=== PATIENT | male | born 1950 | race African-American/Black ===

== ENCOUNTER → 2016-05-19 | Outpatient (CLI) | payer MEDICARE, OTHER ==
[~2016-05-19] MED LIST: AMBI10TA PO; AMLO10TA2 PO; ASPI1TAB PO; CENTTAB PO; CRES20TA PO; CYCL5TA PO; LOSA100T PO; NAPR550T3 PO; VIAG100T PO; VITA500C10 PO
--- NOTE | 2016-05-19 14:22 | REP ---
CHEST, TWO VIEWS: Two views of the chest are performed and compared to a prior study of 05/20/2010. On the PA view, there appear to be ill-defined lingular opacity adjacent to the cardiac apex. There is mild elevation of the right hemidiaphragm. No other parenchymal opacities are appreciated. The heart is upper limits of normal in size. There is mild calcification of the thoracic aorta. The mediastinal silhouette is unremarkable and unchanged. There are degenerative changes of spine. IMPRESSION: Possible infiltrate or atelectasis in the lingular segment of the left upper lobe adjacent to the cardiac apex. CT of the chest may be performed to further evaluate. Signed by Jamel Ji MD 05/19/2016 04:59 P
== END ==
LOC: M WUC 12:14
DX: R05 Cough (principal)

== ENCOUNTER → 2016-09-29 | Outpatient (REF) | payer MEDICARE, OTHER ==
[~2016-09-29] MED LIST changes: -LOSA100T PO; +LOSA100T8 PO; +NAPR550T22 PO; -NAPR550T3 PO
== END ==
LOC: M LAB REF 17:33
PROVIDERS: ATTEND Family Medicine
DX: Z01.89 Encounter for other specified special examinations (principal)

== ENCOUNTER → 2019-04-25 | Outpatient (REF) | payer MEDICARE, OTHER ==
[~2019-04-25] MED LIST changes: -AMLO10TA2 PO; +AMLO10TA5 PO; -ASPI1TAB PO; +ASPI81TA26 PO; -CRES20TA PO; +CRES20TA2 PO; -CYCL5TA PO; +CYCL5TAB5 PO; +NAPR-832 PO; -NAPR550T22 PO
[2019-04-25 14:14] LABS: APPEARANCE, URINE CLEAR (CLEAR); BACTERIA, URINE AUTO NEGATIVE (NEGATIVE); BILIRUBIN, URINE AUTO NEGATIVE (NEGATIVE); BLOOD, URINE BLOOD NEGATIVE (NEGATIVE); COLOR, URINE YELLOW (YELLOW); GLUCOSE, URINE (UA) AUTO NEGATIVE (NEGATIVE); KETONE, URINE AUTO NEGATIVE (NEGATIVE); LEUKOCYTE ESTERASE, URINE AUTO NEGATIVE (NEGATIVE); NITRITE, URINE AUTO NEGATIVE (NEGATIVE); PROTEIN, URINE AUTO NEGATIVE (NEGATIVE); RBC, URINE AUTO 0 /HPF (0-3); SPECIFIC GRAVITY URINE AUTO 1.013 (1.002-1.035); SQUAMOUS EPITHELIAL CELL UR AU 0 /HPF (0-6); UROBILINOGEN, URINE AUTO 0.2 mg/dL (0.0-2.0); WBC, URINE AUTO 1 /HPF (0-3)
== END ==
LOC: M SMT 13:42
PROVIDERS: ATTEND Urology
DX: R39.11 Hesitancy of micturition (principal); R97.20 Elevated prostate specific antigen [PSA]
CPT/HCPCS: 36415; 81001; 84153; 84154; 86316; G0463

== ENCOUNTER → 2019-07-04 | Outpatient (REF) | payer MEDICARE, OTHER ==
[2019-07-05 14:15] LABS: PSA % FREE 10.8 % (.); PSA FREE 0.66 ng/mL; PSA TOTAL 6.1 ng/mL (0.0-4.0)
== END ==
LOC: M LABDRWAD 12:28
PROVIDERS: ATTEND Urology
DX: R97.20 Elevated prostate specific antigen [PSA] (principal)

== ENCOUNTER → 2019-08-02 | Outpatient (CLI) | payer MEDICARE, OTHER ==
--- NOTE | 2019-08-02 13:54 | REPPI ---
TRANSRECTAL PROSTATE ULTRASOUND WITH ULTRASOUND GUIDANCE FOR PROSTATE BIOPSY: Transrectal prostate ultrasound performed. Prostate measures 4.2 x 3.1 x 4.3 cm for a total volume of 29.4 mL. Echotexture is heterogeneous with scattered small cysts and calcifications. Hypoechoic nodule is seen anteriorly on the left measuring 8 mm in diameter. Ultrasound guidance was provided for Dr. Higginbotham who performed ultrasound guided biopsy of the prostate. Electronically Signed by Jamel Ji MD 08/02/2019 03:36 P
== END ==
LOC: M SMT PRO 08:07
PROVIDERS: ATTEND Urology
DX: C61 Malignant neoplasm of prostate (principal)
CPT/HCPCS: 52000; 55700; 76872; 76942; G0416

== ENCOUNTER → 2019-08-11 | Outpatient (REF) | payer OTHER ==
[2019-08-11 13:12] LABS: BLOOD UREA NITROGEN 15 MG/DL (7-18); CALCIUM LEVEL 9.1 MG/DL (8.8-10.2); CARBON DIOXIDE LEVEL 30 MEQ/L (21-32); CHLORIDE LEVEL 107 MEQ/L (98-107); CREATININE FOR GFR 1.17 MG/DL (0.70-1.30); GLOMERULAR FILTRATION RATE > 60.0 (>49); GLUCOSE, FASTING 93 MG/DL (70-100); POTASSIUM SERUM 3.7 MEQ/L (3.5-5.1); SODIUM LEVEL 142 MEQ/L (136-145)
== END ==
LOC: M LABSMT 08:26 → M SFHCADAM 08:56
PROVIDERS: ATTEND Urology
DX: C61 Malignant neoplasm of prostate (principal)

== ENCOUNTER → 2019-08-24 | Outpatient (CLI) | payer OTHER ==
[~2019-08-24] MED LIST changes: +ISOVUE-370 76% 100ML VIAL As Ordered ONE
--- NOTE | 2019-08-24 17:53 | REP ---
WHOLE BODY BONE SCAN: Following the intravenous administration of 22 mCi technetium 99m MDP, patient's whole body is imaged in the anterior and posterior projections with additional oblique and lateral views obtained. There is increased uptake in the region of metallic internal fixation in the lower lumbar spine and sacroiliac region. Arthritic changes are seen at the sacroiliac joints. This correlates with the CT scan today. Very mild scattered uptake is seen in the upper thoracic spine and left posterior cervical facets, most consistent with arthritic uptake. Focal increased uptake at the right sternoclavicular joint is compatible with arthritic uptake. There appears to be mild arthritic uptake at both shoulders. The right iliac crest demonstrates calcifications at tendinous insertions anteriorly and superiorly which may be posttraumatic or postsurgical. There is increased uptake in this region on the bone scan. No definite osseous metastases are seen. Renal and bladder activity are seen. IMPRESSION: There are areas of arthritic uptake and postsurgical uptake, as discussed above. Increased uptake in the right iliac crest is likely related to posttraumatic or postsurgical changes as seen on today's CT scan. No compelling scintigraphic evidence of osseous metastases. Electronically Signed by Jamel Ji MD 08/25/2019 07:33 P
== END ==
LOC: M RAD 09:10
PROVIDERS: ATTEND Urology
DX: C61 Malignant neoplasm of prostate (principal)
CPT/HCPCS: 74177; 78306; A9503; Q9967

== ENCOUNTER → 2019-09-28 | Outpatient (CLI) | payer OTHER ==
[~2019-09-28] MED LIST changes: +ALEV220T22 PO; +ANOR1AER PO; +ATOR40TA75 PO; +CENT1TAB PO; +HYDR25TAB PO; -ISOVUE-370 76% 100ML VIAL As Ordered ONE; +LOSA100T50 PO; +PROAAER10 INH; +TIMO0.5S29 OU
--- NOTE | 2019-09-28 15:54 | REP ---
REASON: History of carcinoma of the prostate. PRIORS: None. FINDINGS: The superior mediastinal structures are midline. The cardiac silhouette is unremarkable in size, shape, and position. The diaphragmatic surfaces of the lungs are regular, and the costophrenic angles are clear. The pulmonary thompson are clear. The imaged osseous structures are intact. IMPRESSION: There is no acute cardiopulmonary disease. Electronically Signed by Ashu Ochoa DO 09/29/2019 11:03 A
== END ==
LOC: M ADAMS 10:54
PROVIDERS: ATTEND Urology
DX: Z01.818 Encounter for other preprocedural examination (principal); N20.0 Calculus of kidney; C61 Malignant neoplasm of prostate; N39.0 Urinary tract infection, site not specified

== ENCOUNTER → 2019-09-28 | Outpatient (REF) | payer OTHER ==
[~2019-09-28] MED LIST changes: -AMLO10TA5 PO; +AMLO1TAB25 PO
[2019-09-28 13:34] LABS: HEMATOCRIT 43.7 % (42.0-52.0); HEMOGLOBIN 14.5 g/dl (13.5-17.5); MEAN CORPUSCULAR HEMOGLOBIN 30.1 pg (27.0-33.0); MEAN CORPUSCULAR HGB CONC 33.2 g/dl (32.0-36.5); MEAN CORPUSCULAR VOLUME 90.7 fl (80.0-96.0); PLATELET COUNT, AUTOMATED 254 10^3/uL (150-450); RED BLOOD COUNT 4.82 10^6/uL (4.30-6.10)
[2019-09-28 13:44] LABS: INR 1.08; PROTHROMBIN TIME 13.7 SECONDS (11.8-14.0)
[2019-09-28 13:45] LABS: PARTIAL THROMBOPLASTIN TIME 31.1 SECONDS (25.0-38.4)
[2019-09-28 13:59] LABS: BLOOD UREA NITROGEN 14 MG/DL (7-18); CALCIUM LEVEL 9.3 MG/DL (8.8-10.2); CARBON DIOXIDE LEVEL 28 MEQ/L (21-32); CHLORIDE LEVEL 108 MEQ/L (98-107); CREATININE FOR GFR 1.22 MG/DL (0.70-1.30); GLOMERULAR FILTRATION RATE > 60.0 (>49); GLUCOSE, FASTING 81 MG/DL (70-100); SODIUM LEVEL 142 MEQ/L (136-145)
== END ==
LOC: M LABSMT 10:57 → M SFHCADAM 11:02
PROVIDERS: ATTEND Urology
DX: Z01.818 Encounter for other preprocedural examination (principal); N20.0 Calculus of kidney; C61 Malignant neoplasm of prostate; N39.0 Urinary tract infection, site not specified

== ENCOUNTER → 2019-10-01 | Outpatient (CLI) | payer OTHER | LOC: M LABSMTC 08:07 | PROVIDERS: ATTEND Anesthesiology | DX: Z03.818 Encounter for observation for suspected exposure to other biological agents ruled out (principal); Z11.59 Encounter for screening for other viral diseases | CPT/HCPCS: C9803; U0003 ==

== ENCOUNTER 2019-10-06 06:27 | Day surgery (SDC) | payer OTHER ==
[~2019-10-06] VITALS: Ht 167.6 cm; Wt 90.2 kg
[~2019-10-06 06:27] MED LIST changes: +LIDOCAINE 1% MDV 20ML VIAL SQ PRN
[2019-10-06] MEDS ORDERED: ceFAZolin SOD 2 GM in IV 1 EA IV ONE (07:00)
[2019-10-06] MEDS ORDERED: LR 1,000 ML IV ONE (07:00)
[2019-10-06] MEDS ORDERED: LIDOCAINE 2% 100MG/5ML SDV (FOR ANES.) As Ordered ONE (07:11)
[2019-10-06] MEDS ORDERED: propofoL 200 MG/20 ML VIAL As Ordered ONE (07:11)
[2019-10-06] MEDS ORDERED: ONDANSETRON 4MG/2ML VIAL As Ordered ONE (07:12)
[2019-10-06] MEDS ORDERED: fentaNYL 100 MCG/2 ML INJECTION (J3010) As Ordered ONE (07:12)
[2019-10-06] MEDS ORDERED: dexameTHASONE 4 MG/ML 1ML VIAL (J1100 PER 1MG) As Ordered ONE (07:12)
[2019-10-06] MEDS ORDERED: MIDAZOLAM INJ 2MG/2ML VIAL (J2250 PER 1MG) As Ordered ONE ×2 (07:32→08:55)
[2019-10-06] MEDS ORDERED: CONRAY-60 60% 50ML VIAL (Q9961) As Ordered ONE (07:38)
[2019-10-06] MEDS ORDERED: ePHEDrine SULFATE 25 MG/5 ML(5MG/ML) SYRINGE As Ordered ONE ×2 (07:55→09:20)
[2019-10-06] MEDS ORDERED: ACETAMINOPHEN 1000MG 100ML IV BTL (OFIRMEV) (J0131 PER 10MG) As Ordered ONE (08:18)
[2019-10-06] MEDS ORDERED: ONDANSETRON 4MG/2ML VIAL IV PRN (08:45)
[2019-10-06] MEDS ORDERED: METOCLOPRAMIDE INJ 10MG/2ML VIAL (J2765 PER 1) IV PRN (08:45)
[2019-10-06] MEDS ORDERED: LR 1,000 ML IV SCH (08:45)
[2019-10-06] MEDS ORDERED: fentaNYL 100 MCG/2 ML INJECTION (J3010) IV PRN (08:45)
[2019-10-06] MEDS ORDERED: PERCOCET 5MG/325MG TAB PO PRN ×2 (08:45)
[2019-10-06 09:15] VITALS: BP 132/77
--- NOTE | 2019-10-06 09:45 | REP ---
C-ARM VIEWS DURING LEFT URETERAL STENT PLACEMENT: Four C-arm views abdomen and pelvis performed. Left pelvocaliceal system is opacified with contrast and appears mildly dilated. There is placement of a left ureteral stent with the proximal end coiled in the left renal pelvis and the distal end coiled in the urinary bladder. Metallic internal fixation is noted in the lower lumbar spine and at the left sacroiliac joint. 4 seconds of fluoroscopy time utilized. Electronically Signed by Jamel Ji MD 10/09/2019 11:33 P
--- NOTE | 2019-10-11 16:30 | RO ---
DATE OF PROCEDURE: 10/06/2019 PREPROCEDURE DIAGNOSIS: Left ureteral stone. POSTPROCEDURE DIAGNOSIS: Left ureteral stone. PROCEDURE: Cystoscopy, left ureteroscopy with laser lithotripsy and basket extraction of stones, left retrograde pyelogram with intraoperative interpretation of images, left ureteral stent placement. SURGEON: Claudio Higginbotham MD COMBER TENDER: None. ANESTHESIA: General. OPERATIVE INDICATIONS: This is a 69-year-old male who on recent CAT scan found to have an approximately 8 mm distal left ureteral stone. He was brought to the operating room today for treatment. DESCRIPTION OF PROCEDURE: The patient brought to the operating room and general anesthesia induced. Prophylactic antibiotics were infused. He was placed in dorsal lithotomy position, prepped and draped in the usual sterile fashion. A rigid cystoscope was inserted into the urethral meatus and advanced to the bladder. A guidewire was advanced up the left collecting system. I then went up the left collecting system with a short semi rigid ureteroscope and within the distal ureter an 8 mm was seen. This stone was fragmented into smaller pieces using a 272 micron laser fiber. All the fragments were removed using a basket. Once done, I examined the more proximal ureter and no additional stones were seen. A retrograde pyelogram was performed and notable for moderate hydroureteronephrosis with no extravasation. I then utilized the previously placed wire to advance a 7 Burmese x 22-32 cm JJ ureteral stent into the left collecting system. The wire was removed and there were adequate curls of the stent in the left renal pelvis and in the bladder. The bladder was emptied of all fluid and this marked the conclusion of the procedure. The patient was then taken out of dorsal lithotomy position, awakened from anesthesia and transported to the recovery room in stable condition. ESTIMATED BLOOD LOSS: 5 mL. COMPLICATIONS: None. SPECIMENS: Kidney stone fragments. PLAN: This patient also has prostate cancer and is scheduled to have a robotic radical prostatectomy in approximately 1-2 weeks. Will likely take his stent out at the time of that procedure. NAVIN
[2019-11-07 14:43] LABS: CA Oxalate Dihy 26 % (.); Ca Ox Monohydrate 74 % (.); Size 4x3 mm (.)
== END 2019-10-06 10:03 | disposition home or self-care (01) ==
LOC: M SDC 06:27
PROVIDERS: ATTEND Urology
DX: N20.1 Calculus of ureter (principal); C61 Malignant neoplasm of prostate; I10 Essential (primary) hypertension; K21.9 Gastro-esophageal reflux disease without esophagitis; J44.9 Chronic obstructive pulmonary disease, unspecified; Z79.51 Long term (current) use of inhaled steroids; Z79.899 Other long term (current) drug therapy; Z88.8 Allergy status to other drugs, medicaments and biological substances; F41.9 Anxiety disorder, unspecified; F32.9 Major depressive disorder, single episode, unspecified
CPT/HCPCS: 52356; 74420; 82365; 88300; C1769; C1894; C2617; J0131; J0690; J1100; J2250; J2405; J3010; Q9961

== ENCOUNTER → 2019-10-12 | Outpatient (REF) | payer OTHER ==
[~2019-10-12] MED LIST changes: -LIDOCAINE 1% MDV 20ML VIAL SQ PRN
[2019-10-12 13:08] LABS: HEMATOCRIT 44.4 % (42.0-52.0); HEMOGLOBIN 14.7 g/dl (13.5-17.5); MEAN CORPUSCULAR HEMOGLOBIN 30.6 pg (27.0-33.0); MEAN CORPUSCULAR HGB CONC 33.1 g/dl (32.0-36.5); MEAN CORPUSCULAR VOLUME 92.3 fl (80.0-96.0); PLATELET COUNT, AUTOMATED 250 10^3/uL (150-450); RED BLOOD COUNT 4.81 10^6/uL (4.30-6.10); WHITE BLOOD COUNT 5.2 10^3/uL (4.0-10.0)
[2019-10-12 13:19] LABS: PARTIAL THROMBOPLASTIN TIME 30.7 SECONDS (25.0-38.4); PROTHROMBIN TIME 12.9 SECONDS (11.8-14.0)
[2019-10-12 13:42] LABS: CALCIUM LEVEL 9.5 MG/DL (8.8-10.2); CREATININE FOR GFR 1.33 MG/DL (0.70-1.30); GLOMERULAR FILTRATION RATE 56.9 (>49); POTASSIUM SERUM 3.9 MEQ/L (3.5-5.1)
== END ==
LOC: M LABSMT 10:30 → M SFHCADAM 11:09
PROVIDERS: ATTEND Urology
DX: Z01.818 Encounter for other preprocedural examination (principal); N20.0 Calculus of kidney; C61 Malignant neoplasm of prostate; N39.0 Urinary tract infection, site not specified

== ENCOUNTER 2019-10-18 07:30 | Inpatient (IN) | payer OTHER ==
[~2019-10-18] VITALS: Ht 170.2 cm; Wt 88.0 kg
[~2019-10-18 07:30] MED LIST changes: +AMLO10TA5 PO; -AMLO1TAB25 PO
[2019-10-18] MEDS ORDERED: HEPARIN SOD (PORCINE) 5000UNITS/ML VIAL (J1644 PER 1000UNITS) ONE ×2 (11:07→22:41)
[2019-10-18] MEDS ORDERED: HEPARIN SOD (PORCINE) 5000UNITS/ML VIAL (J1644 PER 1000UNITS) As Ordered ONE ×2 (11:07→22:41)
[2019-10-18] MEDS ORDERED: ceFAZolin 2 GM/D5W 50 ML IV BAG (J0690 PER 500MG) As Ordered ONE (11:07)
[2019-10-18] MEDS ORDERED: ceFAZolin 2 GM/D5W 50 ML IV BAG (J0690 PER 500MG) ONE (11:07)
[2019-10-18] MEDS ORDERED: BUPIVACAINE HCL 0.25% 30ML VIAL As Ordered ONE (12:23)
[2019-10-18] MEDS ORDERED: LIDOCAINE 1% SDV 30ML VIAL As Ordered ONE (12:23)
[2019-10-18] MEDS ORDERED: TIMOLOL MALEATE 0.5% OPHTH SOLN 5 ML ONE (13:00)
[2019-10-18] MEDS ORDERED: ROCURONIUM BROMIDE 50 MG/5 ML VIAL As Ordered ONE ×2 (13:31→15:19)
[2019-10-18] MEDS ORDERED: LIDOCAINE 2% 100MG/5ML SDV (FOR ANES.) As Ordered ONE (13:31)
[2019-10-18] MEDS ORDERED: ONDANSETRON 4MG/2ML VIAL As Ordered ONE (13:31)
[2019-10-18] MEDS ORDERED: fentaNYL 100 MCG/2 ML INJECTION (J3010) As Ordered ONE ×3 (13:31→19:00)
[2019-10-18] MEDS ORDERED: dexameTHASONE 4 MG/ML 1ML VIAL (J1100 PER 1MG) As Ordered ONE (13:31)
[2019-10-18] MEDS ORDERED: propofoL 200 MG/20 ML VIAL As Ordered ONE (13:31)
[2019-10-18] MEDS ORDERED: HYDROmorphone HCL 2 MG/ML 1ML VIAL (J1170) As Ordered ONE (13:31)
[2019-10-18] MEDS ORDERED: MIDAZOLAM INJ 2MG/2ML VIAL (J2250 PER 1MG) As Ordered ONE (13:31)
[2019-10-18] MEDS ORDERED: GLYCOPYRROLATE INJ 0.2 MG/ML 2 ML VIAL As Ordered ONE (13:32)
[2019-10-18] MEDS ORDERED: ACETAMINOPHEN 1000MG 100ML IV BTL (OFIRMEV) (J0131 PER 10MG) As Ordered ONE (14:38)
[2019-10-18] MEDS ORDERED: SUGAMMADEX SODIUM 500 MG/5 ML VIAL (BRIDION) As Ordered ONE (14:41)
[2019-10-18] MEDS ORDERED: hydrALAZINE 20MG/ML 1ML VIAL (J0360 PER 20MG) As Ordered ONE (14:49)
[2019-10-18] MEDS ORDERED: ATROPINE SULF 0.4 MG/ML 1ML VIAL (J0461) As Ordered ONE (15:05)
[2019-10-18] MEDS ORDERED: ePHEDrine SULFATE 25 MG/5 ML(5MG/ML) SYRINGE As Ordered ONE (16:01)
[2019-10-18] MEDS ORDERED: ALBUTEROL 6.7GM INHALER **FOR ANES. CART/OMNICELL ONLY As Ordered ONE (17:46)
[2019-10-18] MEDS ORDERED: fentaNYL 100 MCG/2 ML INJECTION (J3010) ONE ×2 (18:18→19:00)
[2019-10-18] MEDS ORDERED: oxyCODONE 5MG TAB ONE ×2 (18:18→18:56)
[2019-10-18] MEDS ORDERED: oxyCODONE 5MG TAB As Ordered ONE ×2 (18:18→18:56)
[2019-10-18] MEDS ORDERED: ALBUTEROL SULFATE 2.5 MG/0.5 ML INH NEB SOLN ONE (18:27)
[2019-10-18] MEDS ORDERED: ALBUTEROL SULFATE 2.5 MG/0.5 ML INH NEB SOLN As Ordered ONE (18:27)
[2019-10-18] MEDS ORDERED: ceFAZolin 1GM VIAL (J0690 PER 500MG) ONE (22:41)
[2019-10-18] MEDS ORDERED: DOCUSATE SODIUM 100 MG CAP ONE (22:41)
[2019-10-18] MEDS ORDERED: ceFAZolin 1GM VIAL (J0690 PER 500MG) As Ordered ONE (22:42)
[2019-10-18] MEDS ORDERED: DOCUSATE SODIUM 100 MG CAP As Ordered ONE (22:42)
[2019-10-18] MEDS ORDERED: PERCOCET 5MG/325MG TAB ONE (22:50)
[2019-10-18] MEDS ORDERED: PERCOCET 5MG/325MG TAB As Ordered ONE ×2 (22:50→23:03)
[2019-10-19] MEDS ORDERED: PERCOCET 5MG/325MG TAB ONE ×2 (06:22→12:35)
[2019-10-19] MEDS ORDERED: ceFAZolin 1GM VIAL (J0690 PER 500MG) ONE (06:22)
[2019-10-19] MEDS ORDERED: ceFAZolin 1GM VIAL (J0690 PER 500MG) As Ordered ONE (06:22)
[2019-10-19] MEDS ORDERED: HEPARIN SOD (PORCINE) 5000UNITS/ML VIAL (J1644 PER 1000UNITS) As Ordered ONE ×3 (06:22→21:11)
[2019-10-19] MEDS ORDERED: HEPARIN SOD (PORCINE) 5000UNITS/ML VIAL (J1644 PER 1000UNITS) ONE ×3 (06:22→21:11)
[2019-10-19] MEDS ORDERED: PERCOCET 5MG/325MG TAB As Ordered ONE ×2 (06:32→12:35)
[2019-10-19] MEDS ORDERED: ATORVASTATIN 20 MG TAB As Ordered ONE (08:32)
[2019-10-19] MEDS ORDERED: DOCUSATE SODIUM 100 MG CAP As Ordered ONE ×2 (08:32→21:11)
[2019-10-19] MEDS ORDERED: ATORVASTATIN 20 MG TAB ONE (08:33)
[2019-10-19] MEDS ORDERED: LOSARTAN 50MG TABLET As Ordered ONE (08:33)
[2019-10-19] MEDS ORDERED: hydroCHLOROthiazide 25 MG TAB As Ordered ONE (08:33)
[2019-10-19] MEDS ORDERED: MORPHINE 2 MG/ML 1ML VIAL (J2270) As Ordered ONE ×2 (08:33→14:16)
[2019-10-19] MEDS ORDERED: hydroCHLOROthiazide 25 MG TAB ONE (08:33)
[2019-10-19] MEDS ORDERED: LOSARTAN 50MG TABLET ONE (08:33)
[2019-10-19] MEDS ORDERED: MORPHINE 2 MG/ML 1ML VIAL (J2270) ONE ×2 (08:33→14:16)
[2019-10-19] MEDS ORDERED: amLODIPine 10 MG TAB ONE (08:33)
[2019-10-19] MEDS ORDERED: amLODIPine 10 MG TAB As Ordered ONE (08:33)
[2019-10-19] MEDS ORDERED: DOCUSATE SODIUM 100 MG CAP ONE ×2 (08:33→21:11)
[2019-10-19] MEDS ORDERED: KETOROLAC 30 MG/ML 1ML VIAL As Ordered ONE ×2 (16:03→21:11)
[2019-10-19] MEDS ORDERED: KETOROLAC 30 MG/ML 1ML VIAL ONE ×2 (16:03→21:11)
[2019-10-20] MEDS ORDERED: KETOROLAC 30 MG/ML 1ML VIAL As Ordered ONE ×2 (03:50→08:30)
[2019-10-20] MEDS ORDERED: KETOROLAC 30 MG/ML 1ML VIAL ONE ×2 (03:50→08:30)
[2019-10-20] MEDS ORDERED: HEPARIN SOD (PORCINE) 5000UNITS/ML VIAL (J1644 PER 1000UNITS) As Ordered ONE (07:14)
[2019-10-20] MEDS ORDERED: amLODIPine 10 MG TAB ONE (08:30)
[2019-10-20] MEDS ORDERED: LOSARTAN 50MG TABLET ONE (08:30)
[2019-10-20] MEDS ORDERED: ATORVASTATIN 20 MG TAB ONE (08:30)
[2019-10-20] MEDS ORDERED: DOCUSATE SODIUM 100 MG CAP As Ordered ONE (08:30)
[2019-10-20] MEDS ORDERED: ATORVASTATIN 20 MG TAB As Ordered ONE (08:30)
[2019-10-20] MEDS ORDERED: DOCUSATE SODIUM 100 MG CAP ONE (08:30)
[2019-10-20] MEDS ORDERED: HEPARIN SOD (PORCINE) 5000UNITS/ML VIAL (J1644 PER 1000UNITS) ONE (08:30)
[2019-10-20] MEDS ORDERED: hydroCHLOROthiazide 25 MG TAB ONE (08:30)
[2019-10-20] MEDS ORDERED: amLODIPine 10 MG TAB As Ordered ONE (08:31)
[2019-10-20] MEDS ORDERED: hydroCHLOROthiazide 25 MG TAB As Ordered ONE (08:31)
[2019-10-20] MEDS ORDERED: LOSARTAN 50MG TABLET As Ordered ONE (08:31)
[2019-11-18 23:54] LABS: HEMATOCRIT 44.3 % (42.0-52.0); HEMOGLOBIN 14.7 g/dl (13.5-17.5); MEAN CORPUSCULAR HEMOGLOBIN 30.4 pg (27.0-33.0); MEAN CORPUSCULAR HGB CONC 33.2 g/dl (32.0-36.5); MEAN CORPUSCULAR VOLUME 91.5 fl (80.0-96.0); PLATELET COUNT, AUTOMATED 246 10^3/uL (150-450); RED BLOOD COUNT 4.84 10^6/uL (4.30-6.10); WHITE BLOOD COUNT 10.6 10^3/uL (4.0-10.0)
== END 2019-10-20 17:00 | disposition home or self-care (01) | DRG 707 ==
LOC: M MSPAV 13:15
PROVIDERS: ADMIT Urology; ATTEND Urology
PROC: 0VT04ZZ Resection of Prostate, Percutaneous Endoscopic Approach (ICD-10-PCS; principal; 2019-10-18)
PROC: 07BC4ZX Excision of Pelvis Lymphatic, Percutaneous Endoscopic Approach, Diagnostic (ICD-10-PCS; 2019-10-18)
PROC: 0TP94DZ Removal of Intraluminal Device from Ureter, Percutaneous Endoscopic Approach (ICD-10-PCS; 2019-10-18)
PROC: 8E0W4CZ Robotic Assisted Procedure of Trunk Region, Percutaneous Endoscopic Approach (ICD-10-PCS; 2019-10-18)
DX: C61 Malignant neoplasm of prostate (principal); I50.32 Chronic diastolic (congestive) heart failure; N20.0 Calculus of kidney; I11.0 Hypertensive heart disease with heart failure; J45.998 Other asthma; E78.5 Hyperlipidemia, unspecified; G47.00 Insomnia, unspecified; K21.9 Gastro-esophageal reflux disease without esophagitis; R73.01 Impaired fasting glucose; F43.22 Adjustment disorder with anxiety; Z79.82 Long term (current) use of aspirin; Z79.899 Other long term (current) drug therapy; Z87.891 Personal history of nicotine dependence

== ENCOUNTER → 2019-11-21 | Outpatient (REF) | payer OTHER ==
[~2019-11-21] MED LIST changes: -AMLO10TA5 PO; +AMLO1TAB25 PO
== END ==
LOC: M LABDRWAD 10:23
PROVIDERS: ATTEND Urology
DX: Z12.5 Encounter for screening for malignant neoplasm of prostate (principal); R97.20 Elevated prostate specific antigen [PSA]

== ENCOUNTER → 2020-02-28 | Outpatient (CLI) | payer MEDICARE, OTHER | LOC: M LABSMTC 10:29 | PROVIDERS: ATTEND Family Medicine | DX: Z11.59 Encounter for screening for other viral diseases (principal) ==

== ENCOUNTER → 2020-03-02 | Outpatient (CLI) | payer MEDICARE, OTHER ==
[2020-03-02 14:37] LABS: BASO % 0.3 % (0.0-1.0); EOS # 0.1 10^3/uL (0.0-0.5); EOS % 0.5 % (0.0-3.0); HEMATOCRIT 36.4 % (42.0-52.0); MEAN CORPUSCULAR HEMOGLOBIN 29.6 pg (27.0-33.0); MEAN CORPUSCULAR VOLUME 89.9 fl (80.0-96.0); MONO # 1.7 10^3/uL (0.0-0.8); MONO % 15.1 % (0.0-5.0); NEUTROPHILS # 8.2 10^3/uL (1.5-8.5); NEUTROPHILS % 73.8 % (36.0-66.0); PLATELET COUNT, AUTOMATED 320 10^3/uL (150-450); RED BLOOD COUNT 4.05 10^6/uL (4.30-6.10); WHITE BLOOD COUNT 11.1 10^3/uL (4.0-10.0)
[2020-03-02 14:53] LABS: ALBUMIN 2.9 GM/DL (3.2-5.2); BILIRUBIN,TOTAL 1.2 MG/DL (0.2-1.0); CALCIUM LEVEL 8.8 MG/DL (8.8-10.2); CREATININE FOR GFR 1.47 MG/DL (0.70-1.30); GLOMERULAR FILTRATION RATE 50.6 (>49); POTASSIUM SERUM 3.5 MEQ/L (3.5-5.1); TOTAL PROTEIN 7.2 GM/DL (6.4-8.2)
== END ==
LOC: M WUC 13:03
PROVIDERS: ATTEND Physician Assistant
DX: R50.9 Fever, unspecified (principal); M51.34 Other intervertebral disc degeneration, thoracic region; J20.9 Acute bronchitis, unspecified; Z20.828 Contact with and (suspected) exposure to other viral communicable diseases

== ENCOUNTER → 2020-03-02 | Outpatient (CLI) | payer MEDICARE, OTHER ==
--- NOTE | 2020-03-02 12:33 | REP ---
INDICATION: ACUTE BRONCHITIS, CONTACT EXPOSURE TO OTHER VIRAL DISEASE. COMPARISON: Comparison chest x-ray September 28, 2019. TECHNIQUE: Two views.. FINDINGS: The lungs are well inflated and free of infiltrate. There is an eventration of the right hemidiaphragm. Pleural angles are sharp. There are degenerative changes in the thoracic spine. The aorta is tortuous. Heart size is normal. Pulmonary vasculature is not increased. IMPRESSION: No active disease.. <Electronically signed by Marlon Mojica > 03/02/20 [id number]
== END ==
LOC: M WUC 12:08
PROVIDERS: ATTEND Physician Assistant
DX: M51.34 Other intervertebral disc degeneration, thoracic region (principal); J20.9 Acute bronchitis, unspecified; Z20.828 Contact with and (suspected) exposure to other viral communicable diseases

== ENCOUNTER → 2020-03-08 | Outpatient (REF) | payer OTHER ==
[2020-03-08 14:27] LABS: APPEARANCE, URINE HAZY (CLEAR); BACTERIA, URINE AUTO NEGATIVE (NEGATIVE); BILIRUBIN, URINE AUTO NEGATIVE (NEGATIVE); BLOOD, URINE BLOOD 1+ (NEGATIVE); COLOR, URINE YELLOW (YELLOW); GLUCOSE, URINE (UA) AUTO NEGATIVE (NEGATIVE); KETONE, URINE AUTO NEGATIVE (NEGATIVE); LEUKOCYTE ESTERASE, URINE AUTO NEGATIVE (NEGATIVE); MUCUS, URINE SMALL (NEGATIVE); NITRITE, URINE AUTO NEGATIVE (NEGATIVE); PROTEIN, URINE AUTO 3+ mg/dL (NEGATIVE); RBC, URINE AUTO 51 /HPF (0-3); SPECIFIC GRAVITY URINE AUTO 1.013 (1.002-1.035); SQUAMOUS EPITHELIAL CELL UR AU 0 /HPF (0-6); WBC, URINE AUTO 2 /HPF (0-3)
== END ==
LOC: M LABSMT 10:34
PROVIDERS: ATTEND Urology
DX: N20.0 Calculus of kidney (principal)

== ENCOUNTER → 2020-03-08 | Outpatient (CLI) | payer MEDICARE, OTHER ==
--- NOTE | 2020-03-08 12:44 | REP ---
INDICATION: KIDNEY STONE. COMPARISON: Supine abdomen min plain film study dated 12/26/[address] with IV contrast dated 08/24/2019. TECHNIQUE: Supine AP views of the abdomen and pelvis, two views. FINDINGS: On the comparison CT number bilateral renal calculi and a calcification inferiorly in the pelvis thought to have been a distal left ureteral calculus. There is no hydronephrosis. On the study today the kidneys are obscured by bowel gas. No definite renal calculi can be identified. On the study today no calcifications are identified in the pelvis. There is surgical fusion of the lumbar spine spanning L3-S1, similar to the comparison CT. IMPRESSION: No renal or pelvic calculi are identified on plain films today. Depending on symptoms consider a follow-up CT without and with IV contrast using the CT urogram protocol. <Electronically signed by Jamel Joyner > 03/08/20 [id number]
== END ==
LOC: M ADAMS 08:34
PROVIDERS: ATTEND Urology
DX: N20.0 Calculus of kidney (principal)

== ENCOUNTER → 2020-03-12 | Outpatient (REF) | payer OTHER | LOC: M SFHCADAM 11:16 | PROVIDERS: ATTEND Urology | DX: C61 Malignant neoplasm of prostate (principal) ==

== ENCOUNTER → 2020-06-12 | Outpatient (REF) | payer OTHER ==
[~2020-06-12] MED LIST changes: +HYDR-3490 PO; -HYDR25TAB PO
== END ==
LOC: M SFHCADAM 15:38
PROVIDERS: ATTEND Urology
DX: C61 Malignant neoplasm of prostate (principal)

== ENCOUNTER → 2020-10-01 | Outpatient (REF) | payer OTHER | LOC: M SFHCADAM 14:02 | PROVIDERS: ATTEND Urology | DX: C61 Malignant neoplasm of prostate (principal) ==

== ENCOUNTER → 2021-01-09 | Outpatient (REF) | payer MEDICARE, OTHER ==
[2021-01-11 18:27] LABS: % LABILE ALKALINE PHOSPHATASE 87.4 %
== END ==
LOC: M LAB REF 16:37
PROVIDERS: ATTEND Family Medicine
DX: R74.01 Elevation of levels of liver transaminase levels (principal)

== ENCOUNTER → 2021-01-15 | Outpatient (REF) | payer OTHER | LOC: M SFHCADAM 11:16 | PROVIDERS: ATTEND Urology | DX: C61 Malignant neoplasm of prostate (principal) ==

== ENCOUNTER → 2021-01-15 | Outpatient (CLI) | payer MEDICARE, OTHER ==
--- NOTE | 2021-01-15 13:25 | REP ---
INDICATION: COUGH. COMPARISON: Multiple 03/02/2020 the latest prior FINDINGS: The superior mediastinal structures are midline. The cardiac silhouette is unremarkable in size, shape, and position. The diaphragmatic surfaces of the lungs are regular, and the costophrenic angles are clear. The pulmonary thompson are clear. The imaged osseous structures are intact. IMPRESSION: There is no acute cardiopulmonary disease. No significant change from the prior exam. <Electronically signed by Ashu Ochoa > 01/15/21 [id number]
== END ==
LOC: M ADAMS 11:18
PROVIDERS: ATTEND Family Medicine
DX: R05.9 Cough, unspecified (principal); C61 Malignant neoplasm of prostate

== ENCOUNTER → 2021-04-08 | Outpatient (REF) | payer MEDICARE, OTHER ==
[~2021-04-08] MED LIST changes: +LOSA100T45 PO; -LOSA100T50 PO
== END ==
LOC: M LABDRWAD 12:28 → M SMT 12:28
PROVIDERS: ATTEND Urology
DX: C61 Malignant neoplasm of prostate (principal)

== ENCOUNTER → 2021-07-15 | Outpatient (REF) | payer OTHER | LOC: M SFHCADAM 14:19 | PROVIDERS: ATTEND Urology | DX: C61 Malignant neoplasm of prostate (principal) ==

== ENCOUNTER → 2021-07-24 | Outpatient (CLI) | payer OTHER | LOC: M WHC 08:13 | PROVIDERS: ATTEND Nurse Practitioner Family | DX: R94.5 Abnormal results of liver function studies (principal) ==

== ENCOUNTER 2021-08-09 01:20 | Emergency (ER) | payer OTHER ==
[~2021-08-09] VITALS: Ht 170.2 cm; Wt 90.3 kg
[2021-08-09] MEDS ORDERED: SERT50TA29 PO (01:29)
[2021-08-09 03:40] LABS: BASO % 0.4 % (0.0-1.0); EOS # 0.1 10^3/uL (0.0-0.5); EOS % 1.7 % (0.0-3.0); HEMATOCRIT 32.9 % (42.0-52.0); HEMOGLOBIN 11.2 g/dl (13.5-17.5); LYMPH % 13.9 % (24.0-44.0); MEAN CORPUSCULAR HEMOGLOBIN 29.9 pg (27.0-33.0); MEAN CORPUSCULAR VOLUME 87.7 fl (80.0-96.0); MONO # 0.7 10^3/uL (0.0-0.8); MONO % 9.9 % (2.0-8.0); NEUTROPHILS # 5.5 10^3/uL (1.5-8.5); PLATELET COUNT, AUTOMATED 364 10^3/uL (150-450); RED BLOOD COUNT 3.75 10^6/uL (4.30-6.10); WHITE BLOOD COUNT 7.5 10^3/uL (4.0-10.0)
[2021-08-09] MEDS ORDERED: NS 1,000 ML IV ONE (03:55)
[2021-08-09] MEDS ORDERED: ONDANSETRON 4MG/2ML VIAL IV ONE (03:55)
[2021-08-09] MEDS: HYDROMORPHONE HCL 0.5 MG/ 0.5 ML SYRINGE (J1170 PER 1) IV PRN ×2 (04:11→06:47)
[2021-08-09 04:48] LABS: ALBUMIN 2.8 GM/DL (3.2-5.2); ALT/SGPT 27 U/L (12-78); BILIRUBIN,TOTAL 0.4 MG/DL (0.2-1.0); BLOOD UREA NITROGEN 18 MG/DL (7-18); CALCIUM LEVEL 9.5 MG/DL (8.8-10.2); CARBON DIOXIDE LEVEL 26 MEQ/L (21-32); CHLORIDE LEVEL 108 MEQ/L (98-107); CREATININE FOR GFR 1.12 MG/DL (0.70-1.30); GLOMERULAR FILTRATION RATE > 60.0 (>42); GLUCOSE, FASTING 107 MG/DL (70-100); POTASSIUM SERUM 3.7 MEQ/L (3.5-5.1); SODIUM LEVEL 141 MEQ/L (136-145); TOTAL PROTEIN 8.5 GM/DL (6.4-8.2)
[2021-08-09] MEDS ORDERED: ISOVUE-370 76% 100ML VIAL As Ordered ONE (05:58)
[2021-08-09] MEDS ORDERED: PHENAZOPYRIDINE 100 MG TAB PO ONE (06:15)
[2021-08-09 07:49] LABS: BASO % 0.4 % (0.0-1.0); EOS # 0.2 10^3/uL (0.0-0.5); EOS % 2.2 % (0.0-3.0); HEMATOCRIT 30.5 % (42.0-52.0); HEMOGLOBIN 10.3 g/dl (13.5-17.5); LYMPH # 0.9 10^3/uL (1.5-5.0); LYMPH % 13.1 % (24.0-44.0); MEAN CORPUSCULAR HEMOGLOBIN 29.8 pg (27.0-33.0); MEAN CORPUSCULAR HGB CONC 33.8 g/dl (32.0-36.5); MEAN CORPUSCULAR VOLUME 88.2 fl (80.0-96.0); MONO # 0.6 10^3/uL (0.0-0.8); MONO % 9.1 % (2.0-8.0); NEUTROPHILS # 5.1 10^3/uL (1.5-8.5); NEUTROPHILS % 74.9 % (36.0-66.0); PLATELET COUNT, AUTOMATED 336 10^3/uL (150-450); RED BLOOD COUNT 3.46 10^6/uL (4.30-6.10); WHITE BLOOD COUNT 6.8 10^3/uL (4.0-10.0)
[2021-08-09 13:01] LABS: RSV AMPLIFICATION NEGATIVE (NEGATIVE)
[2021-08-09] MEDS ORDERED: LIDOCAINE 1% MDV 20ML VIAL As Ordered ONE (13:38)
[2021-08-09] MEDS ORDERED: CYCL5TAB PO (13:39)
[2021-08-09] MEDS ORDERED: HOME MED LIST COMPLETE! XX SCH (14:15)
[2021-08-09] MEDS ORDERED: CEPH500C PO (15:07)
[2021-08-09] MEDS ORDERED: PYRI1TAB5 PO (15:07)
[2021-08-09 15:57] VITALS: BP 122/66
== END 2021-08-09 15:58 | disposition home or self-care (01) ==
LOC: M ED 01:20
DX: N20.0 Calculus of kidney (principal); L76.34 Postprocedural seroma of skin and subcutaneous tissue following other procedure; I50.9 Heart failure, unspecified; I11.0 Hypertensive heart disease with heart failure; E78.5 Hyperlipidemia, unspecified; Z87.891 Personal history of nicotine dependence; Z88.8 Allergy status to other drugs, medicaments and biological substances
CPT/HCPCS: 74176; 74177; 80053; 81001; 83605; 85025; 87086; 87631; 96361; 96374; 99285; J1170; J2405; Q9967

== ENCOUNTER → 2021-08-14 | Outpatient (REF) | payer OTHER ==
[~2021-08-14] MED LIST changes: +BACTDSTA PO; +CEPH500C PO; +CYCL5TAB PO; +PYRI1TAB5 PO; +SERT50TA29 PO
== END ==
LOC: M SMT 17:11
PROVIDERS: ATTEND Urology
DX: N32.89 Other specified disorders of bladder (principal)

== ENCOUNTER → 2021-08-22 | Outpatient (CLI) | payer OTHER ==
[~2021-08-22] MED LIST changes: +LIDOCAINE 1% MDV 20ML VIAL As Ordered ONE
[2021-08-22 12:24] VITALS: BP 118/66
== END ==
LOC: M IRPRO 10:33
PROVIDERS: ATTEND Urology
DX: I89.8 Other specified noninfective disorders of lymphatic vessels and lymph nodes (principal)

== ENCOUNTER → 2021-10-02 | Outpatient (CLI) | payer OTHER ==
[~2021-10-02] MED LIST changes: +ISOVUE-370 76% 100ML VIAL As Ordered ONE; -LIDOCAINE 1% MDV 20ML VIAL As Ordered ONE
== END ==
LOC: M RAD 13:17
PROVIDERS: ATTEND Nurse Practitioner Family
DX: N28.89 Other specified disorders of kidney and ureter (principal)
CPT/HCPCS: 74170; Q9967

== ENCOUNTER → 2021-10-09 | Outpatient (REF) | payer OTHER ==
[~2021-10-09] MED LIST changes: -ISOVUE-370 76% 100ML VIAL As Ordered ONE
== END ==
LOC: M SFHCADAM 12:00
PROVIDERS: ATTEND Urology
DX: C61 Malignant neoplasm of prostate (principal)

== ENCOUNTER → 2021-11-04 | Outpatient (CLI) | payer OTHER | LOC: M RAD 11:41 | PROVIDERS: ATTEND Urology | DX: Z01.818 Encounter for other preprocedural examination (principal); N28.89 Other specified disorders of kidney and ureter ==

== ENCOUNTER → 2021-11-04 | Outpatient (REF) | LOC: M RAD 11:44 | PROVIDERS: ATTEND Nurse Practitioner Family | DX: N28.89 Other specified disorders of kidney and ureter (principal) ==

== ENCOUNTER → 2021-11-17 | Outpatient (CLI) | payer OTHER | LOC: M LABSMTC 10:41 | PROVIDERS: ATTEND Anesthesiology | DX: Z01.812 Encounter for preprocedural laboratory examination (principal) ==

== ENCOUNTER 2021-11-21 06:12 | Inpatient (IN) | payer OTHER ==
[~2021-11-21] VITALS: Ht 170.2 cm; Wt 88.5 kg
[~2021-11-21 06:12] MED LIST changes: +ceFAZolin SOD 2 GM in IV 1 EA IV ONE
[2021-11-21] MEDS ORDERED: LR 1,000 ML IV SCH ×2 (06:35→11:55)
[2021-11-21] MEDS ORDERED: LIDOCAINE 1% SDV 30ML VIAL As Ordered ONE (06:43)
[2021-11-21] MEDS ORDERED: BUPIVACAINE HCL 0.25% 30ML VIAL As Ordered ONE (06:44)
[2021-11-21] MEDS ORDERED: dexameTHASONE 4 MG/ML 1ML VIAL (J1100 PER 1MG) As Ordered ONE (07:13)
[2021-11-21] MEDS ORDERED: LIDOCAINE 2% 100MG/5ML SDV (FOR ANES.) As Ordered ONE ×3 (07:13→10:55)
[2021-11-21] MEDS ORDERED: ROCURONIUM BROMIDE 50 MG/5 ML VIAL As Ordered ONE (07:13)
[2021-11-21] MEDS ORDERED: propofoL 200 MG/20 ML VIAL As Ordered ONE ×2 (07:13→11:25)
[2021-11-21] MEDS ORDERED: fentaNYL 100 MCG/2 ML INJECTION As Ordered ONE (07:13)
[2021-11-21] MEDS ORDERED: ONDANSETRON 4MG 2ML VIAL As Ordered ONE (07:13)
[2021-11-21] MEDS ORDERED: PERCOCET 5MG/325MG TAB PO PRN ×2 (07:25→11:55)
[2021-11-21] MEDS ORDERED: ONDANSETRON 4MG 2ML VIAL IV PRN ×2 (07:25→11:55)
[2021-11-21] MEDS ORDERED: NS 1,000 ML IV SCH (07:25)
[2021-11-21] MEDS ORDERED: ACETAMINOPHEN TAB 650MG DOSE (2X325MG) PO PRN (07:25)
[2021-11-21] MEDS ORDERED: ALBUTEROL 90 MCG/ACT 8GM HFA INHALER INH PRN (07:25)
[2021-11-21] MEDS ORDERED: ePHEDrine SULFATE 25 MG/5 ML(5MG/ML) SYRINGE As Ordered ONE ×2 (07:56→08:27)
[2021-11-21] MEDS ORDERED: VECURONIUM BROMIDE 10MG VIAL As Ordered ONE (08:34)
[2021-11-21] MEDS ORDERED: MANNITOL 25% 12.5 GM/50 ML VIAL (J2150) As Ordered ONE (09:47)
[2021-11-21] MEDS ORDERED: SUGAMMADEX SODIUM 500 MG/5 ML VIAL (BRIDION) As Ordered ONE (11:21)
[2021-11-21] MEDS ORDERED: ACETAMINOPHEN 1000MG 100ML IV BTL (OFIRMEV) (J0131 PER 10MG) As Ordered ONE (11:45)
[2021-11-21] MEDS ORDERED: MORPHINE 2 MG/ML 1ML VIAL IV PRN (11:55)
[2021-11-21] MEDS ORDERED: fentaNYL 100 MCG/2 ML INJECTION IV PRN (11:55)
[2021-11-21] MEDS: PERCOCET 5MG/325MG TAB PO PRN ×3 (13:22→23:57)
[2021-11-21 13:46] LABS: CALCIUM LEVEL 8.8 MG/DL (8.8-10.2); CREATININE FOR GFR 1.35 MG/DL (0.70-1.30); GLOMERULAR FILTRATION RATE 55.6 (>42); POTASSIUM SERUM 4.4 MEQ/L (3.5-5.1)
[2021-11-21 14:04] LABS: HEMATOCRIT 43.8 % (42.0-52.0); HEMOGLOBIN 14.9 g/dl (13.5-17.5); MEAN CORPUSCULAR HEMOGLOBIN 30.8 pg (27.0-33.0); MEAN CORPUSCULAR VOLUME 90.5 fl (80.0-96.0); PLATELET COUNT, AUTOMATED 251 10^3/uL (150-450); RED BLOOD COUNT 4.84 10^6/uL (4.30-6.10); WHITE BLOOD COUNT 6.2 10^3/uL (4.0-10.0)
[2021-11-21] MEDS: ceFAZolin SOD 1 GM in D5W MINI-BAG PLUS 50 ML IV SCH ×2 (15:29→23:54)
[2021-11-21 17:00] VITALS: BP 154/85
[2021-11-21 17:30] VITALS: BP 165/90
[2021-11-21 18:30] VITALS: BP 143/86
[2021-11-21 20:00] VITALS: BP 141/78
[2021-11-21] MEDS: DOCUSATE SODIUM 100MG CAPSULE PO SCH (20:12)
[2021-11-21 20:13] VITALS: BP 162/92
[2021-11-21] MEDS ORDERED: ATORVASTATIN 20 MG TAB PO SCH (21:00)
[2021-11-21 21:30] VITALS: BP 143/87
[2021-11-21] MEDS: TIMOLOL MALEATE 0.5% OPHTH SOLN 5 ML OU SCH (22:45)
[2021-11-22 01:30] VITALS: BP 117/73
[2021-11-22 05:30] VITALS: BP 112/68
[2021-11-22 07:05] LABS: HEMATOCRIT 39.5 % (42.0-52.0); HEMOGLOBIN 13.2 g/dl (13.5-17.5); MEAN CORPUSCULAR HEMOGLOBIN 30.3 pg (27.0-33.0); MEAN CORPUSCULAR HGB CONC 33.4 g/dl (32.0-36.5); MEAN CORPUSCULAR VOLUME 90.8 fl (80.0-96.0); PLATELET COUNT, AUTOMATED 222 10^3/uL (150-450); RED BLOOD COUNT 4.35 10^6/uL (4.30-6.10); WHITE BLOOD COUNT 8.9 10^3/uL (4.0-10.0)
[2021-11-22 07:33] LABS: CALCIUM LEVEL 9.1 MG/DL (8.8-10.2); CREATININE FOR GFR 1.35 MG/DL (0.70-1.30); GLOMERULAR FILTRATION RATE 55.6 (>42); POTASSIUM SERUM 3.9 MEQ/L (3.5-5.1)
[2021-11-22 08:00] VITALS: BP 132/76
[2021-11-22] MEDS: DOCUSATE SODIUM 100MG CAPSULE PO SCH (08:19)
[2021-11-22] MEDS: TIMOLOL MALEATE 0.5% OPHTH SOLN 5 ML OU SCH (08:20)
[2021-11-22] MEDS ORDERED: ASPIRIN 81MG ENTERIC TABLET PO SCH (09:00)
[2021-11-22] MEDS ORDERED: SERTRALINE HCL 50 MG TAB PO SCH (09:00)
[2021-11-22] MEDS ORDERED: LOSARTAN 50MG TABLET PO SCH (09:00)
[2021-11-22 12:00] VITALS: BP 123/72
[2021-11-22] MEDS ORDERED: PERCOCET PO (13:40)
[2021-11-22] MEDS ORDERED: COLA100C5 PO (13:40)
== END 2021-11-22 14:18 | disposition home or self-care (01) | DRG 658 ==
LOC: M OR 06:12 → M 4MAIN 16:55
PROVIDERS: ADMIT Urology; ATTEND Urology
PROC: 8E0W4CZ Robotic Assisted Procedure of Trunk Region, Percutaneous Endoscopic Approach (ICD-10-PCS; 2021-11-21)
PROC: 0TB14ZZ Excision of Left Kidney, Percutaneous Endoscopic Approach (ICD-10-PCS; principal; 2021-11-21 07:30)
DX: C64.2 Malignant neoplasm of left kidney, except renal pelvis (principal); I10 Essential (primary) hypertension; G89.29 Other chronic pain; E78.5 Hyperlipidemia, unspecified; N52.9 Male erectile dysfunction, unspecified; I89.8 Other specified noninfective disorders of lymphatic vessels and lymph nodes; Z79.82 Long term (current) use of aspirin; Z79.899 Other long term (current) drug therapy; Z85.46 Personal history of malignant neoplasm of prostate; Z88.8 Allergy status to other drugs, medicaments and biological substances

== ENCOUNTER → 2022-06-23 | Outpatient (CLI) | payer MEDICARE, OTHER ==
[~2022-06-23] MED LIST changes: +COLA100C5 PO; +PERCOCET PO; -ceFAZolin SOD 2 GM in IV 1 EA IV ONE
[2022-06-23 08:48] LABS: BLOOD UREA NITROGEN 15 MG/DL (9-23); CALCIUM LEVEL 9.3 MG/DL (8.3-10.6); CARBON DIOXIDE LEVEL 27 MMOL/L (20-31); CHLORIDE LEVEL 108 MMOL/L (98-107); CREATININE FOR GFR 1.17 MG/DL (0.70-1.30); GLOMERULAR FILTRATION RATE > 60.0 (>42); GLUCOSE, FASTING 92 MG/DL (74-106); POTASSIUM SERUM 3.7 MMOL/L (3.5-5.1); PROSTATIC SPECIFIC AG MONITOR 0.04 NG/ML (< 4.00); SODIUM LEVEL 143 MMOL/L (136-145)
== END ==
LOC: M LAB 07:55
PROVIDERS: ATTEND Urology
DX: C64.2 Malignant neoplasm of left kidney, except renal pelvis (principal); R97.20 Elevated prostate specific antigen [PSA]

== ENCOUNTER → 2022-06-30 | Outpatient (CLI) | payer MEDICARE, OTHER ==
[~2022-06-30] MED LIST changes: +ISOVUE-370 76% 100ML VIAL As Ordered ONE; +TIMO0.5S20 OU; -TIMO0.5S29 OU
== END ==
LOC: M RAD 12:37
PROVIDERS: ATTEND Urology
DX: C64.2 Malignant neoplasm of left kidney, except renal pelvis (principal)
CPT/HCPCS: 71046; 74170; Q9967

== ENCOUNTER → 2023-01-07 | Outpatient (REF) | payer OTHER ==
[~2023-01-07] MED LIST changes: -ISOVUE-370 76% 100ML VIAL As Ordered ONE; -LOSA100T45 PO; +LOSA100T46 PO
== END ==
LOC: M SFHCADAM 10:46
PROVIDERS: ATTEND Urology
DX: C61 Malignant neoplasm of prostate (principal)

== ENCOUNTER → 2023-06-22 | Outpatient (CLI) | payer OTHER, MEDICARE ==
[2023-06-22 08:31] LABS: PROSTATIC SPECIFIC AG MONITOR 0.04 NG/ML (< 4.00)
[2023-06-22 08:33] LABS: CALCIUM LEVEL 9.3 MG/DL (8.3-10.6); CREATININE FOR GFR 1.32 MG/DL (0.70-1.30); GLOMERULAR FILTRATION RATE 56.8 (>42); POTASSIUM SERUM 3.6 MMOL/L (3.5-5.1)
== END ==
LOC: M LAB 07:36
PROVIDERS: ATTEND Urology
DX: C61 Malignant neoplasm of prostate (principal); C64.2 Malignant neoplasm of left kidney, except renal pelvis

== ENCOUNTER → 2023-06-23 | Outpatient (CLI) | payer OTHER, MEDICARE | LOC: M ADAMS 07:55 | PROVIDERS: ATTEND Urology | DX: C64.2 Malignant neoplasm of left kidney, except renal pelvis (principal) ==

== ENCOUNTER → 2023-07-24 | Outpatient (CLI) | payer OTHER, MEDICARE ==
[~2023-07-24] MED LIST changes: +ISOVUE-370 76% 100ML VIAL ONE
== END ==
LOC: M PLAIMG 12:17
PROVIDERS: ATTEND Urology
DX: C64.2 Malignant neoplasm of left kidney, except renal pelvis (principal)
CPT/HCPCS: 74170; Q9967

== ENCOUNTER → 2024-01-27 | Outpatient (REF) | payer OTHER ==
[~2024-01-27] MED LIST changes: -ISOVUE-370 76% 100ML VIAL ONE
== END ==
LOC: M SFHCADAM 13:07
PROVIDERS: ATTEND Urology
DX: C61 Malignant neoplasm of prostate (principal)

== ENCOUNTER → 2024-05-25 | Outpatient (CLI) | payer MEDICARE, OTHER ==
[~2024-05-25] MED LIST changes: -CYCL5TAB PO; +CYCL5TAB4 PO
== END ==
LOC: M WUC 08:05
PROVIDERS: ATTEND Family Medicine
DX: R05.9 Cough, unspecified (principal)

== ENCOUNTER → 2024-05-30 | Outpatient (CLI) | payer MEDICARE, OTHER ==
[~2024-05-30] MED LIST changes: +ISOVUE-370 76% 100ML VIAL As Ordered ONE
== END ==
LOC: M RAD 14:01
PROVIDERS: ATTEND Family Medicine
DX: R74.8 Abnormal levels of other serum enzymes (principal)
CPT/HCPCS: 74178; Q9967

== ENCOUNTER → 2024-07-11 | Outpatient (REF) | payer OTHER ==
[~2024-07-11] MED LIST changes: -ISOVUE-370 76% 100ML VIAL As Ordered ONE
[2024-07-11 13:50] LABS: CALCIUM LEVEL 9.3 MG/DL (8.3-10.6); CREATININE FOR GFR 1.22 MG/DL (0.70-1.30); GLOMERULAR FILTRATION RATE 62.6 (>42); POTASSIUM SERUM 3.6 MMOL/L (3.5-5.1); PROSTATIC SPECIFIC AG MONITOR 0.04 NG/ML (< 4.00)
== END ==
LOC: M SFHCADAM 08:15
PROVIDERS: ATTEND Urology
DX: C61 Malignant neoplasm of prostate (principal); C64.2 Malignant neoplasm of left kidney, except renal pelvis